=== PATIENT | male | born 1975 | race Caucasian/White ===

== ENCOUNTER 2016-10-12 23:48 | Emergency (ER) | payer OTHER ==
[~2016-10-12] VITALS: Ht 167.6 cm; Wt 86.2 kg
[~2016-10-12 23:48] MED LIST: VICODIN5-300 PO
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
[2016-10-13 02:30] VITALS: BP 130/88
[2016-10-13] MEDS ORDERED: KEFLEX500 M1 PO (02:52)
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
== END 2016-10-13 03:00 ==
LOC: ERH 23:48
DX: S51.012A Laceration without foreign body of left elbow, initial encounter (principal); S50.02XA Contusion of left elbow, initial encounter; V48.5XXA Car driver injured in noncollision transport accident in traffic accident, initial encounter; Y93.9 Activity, unspecified; Y92.488 Other paved roadways as the place of occurrence of the external cause
CPT/HCPCS: 73080-LT; 90471; 90714; 96372; J1885

== ENCOUNTER 2016-10-15 10:07 | Emergency (ER) | payer OTHER ==
[~2016-10-15] VITALS: Ht 167.6 cm; Wt 86.2 kg
[~2016-10-15 10:07] MED LIST changes: +KEFLEX500 M1 PO
[2016-10-15 10:13] VITALS: BP 117/67
[2016-10-15] MEDS ORDERED: NAPROSYN500 M1 PO (10:51)
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
== END 2016-10-15 11:01 ==
LOC: ERH 10:07
DX: S51.012A Laceration without foreign body of left elbow, initial encounter (principal); V49.60XA Unspecified car occupant injured in collision with unspecified motor vehicles in traffic accident, initial encounter; Y92.9 Unspecified place or not applicable
CPT/HCPCS: 99281

== ENCOUNTER 2016-10-23 12:28 | Emergency (ER) | payer OTHER ==
[~2016-10-23] VITALS: Ht 167.6 cm; Wt 86.2 kg
[~2016-10-23 12:28] MED LIST changes: +NAPROSYN500 M1 PO
[2016-10-23 12:48] VITALS: BP 113/71
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
== END 2016-10-23 14:40 ==
LOC: ERH 12:28
DX: S51.012D Laceration without foreign body of left elbow, subsequent encounter (principal)
CPT/HCPCS: 99281